=== PATIENT | male | born 1945 | race Caucasian/White ===

== ENCOUNTER → 2020-06-17 | Outpatient (CLI) | payer BC ==
[2015-02-04 10:35] VITALS: BP 160/81
[~2020-06-17] MED LIST: ALBU2.5V8 IH; ASPI325T11 PO; ATOR20TA PO; FLUT1DIS IH; FLUT1DIS3 IH; HYDR-2761 PO; LISI-338 PO; METO25TA4 PO; TICA90TA PO
--- NOTE | 2020-06-18 12:26 | CARD ---
MR#: [id number] Date of Study: 06/17/2020 Ordering Physician: MARIA DE JESUS BRINK, Referring Physician: MARIA DE JESUS BRINK, Tech: Preethi Ye [facility] APPROVED REPORT EXAM: Two-dimensional and M-mode echocardiogram with Doppler and color Doppler. Other Information Quality : Good INDICATION Cardiac Disease: CAD 2D DIMENSIONS RVDd2.7 (2.9-3.5cm)Left Atrium(2D)3.4 (1.6-4.0cm) IVSd1.3 (0.7-1.1cm)Aortic Root(2D)3.0 (2.0-3.7cm) LVDd4.8 (3.9-5.9cm)LVOT Diameter2.3 (1.8-2.4cm) PWd1.2 (0.7-1.1cm)LVDs3.1 (2.5-4.0cm) FS (%) 35.5 %SV68.2 ml Aortic Valve AoV Peak Humza.137.1cm/sAoV VTI23.1cm AO Peak GR.7.5mmHgLVOT Peak Humza.79.3cm/s AO Mean GR.4mmHgAVA (VMAX)2.32cm2 ERAN (VTI)3.10cm2 Mitral Valve MV E Quyyxgbi51.8cm/sMV DECEL [id number] MV A Twhhohtf584.1cm/sE/A Ratio0.4 Pulmonary Vein S1 Piffyjee65.4cm/sD2 Flsyilwu80.6cm/s LEFT VENTRICLE The left ventricle is normal size. There is mild concentric left ventricular hypertrophy. The left ve ntricular systolic function is grossly normal. The Ejection Fraction is 50-55%. There is slight hypok inesis of the septal wall. Transmitral Doppler flow pattern is Grade I-abnormal relaxation pattern. RIGHT VENTRICLE The right ventricle is normal size. The right ventricular systolic function is normal. ATRIA The left atrium size is normal. The right atrium size is normal. AORTIC VALVE The aortic valve is moderately thickened but opens well. Doppler and Color Flow revealed mild aortic regurgitation. There is no significant aortic valvular stenosis. MITRAL VALVE The mitral valve is calcified but opens well. There is no evidence of mitral valve prolapse. There is no mitral valve stenosis. Doppler and Color-flow revealed trace mitral regurgitation. TRICUSPID VALVE The tricuspid valve is normal in structure and function. Doppler and Color Flow revealed no tricuspid valve regurgitation noted. There is no tricuspid valve stenosis. PULMONIC VALVE The pulmonic valve is not well visualized. Doppler and Color Flow revealed trace pulmonic valvular re gurgitation. There is no pulmonic valvular stenosis. GREAT VESSELS The aortic root is normal in size. The ascending aorta is normal in size. The IVC is normal in size a nd collapses >50% with inspiration. PERICARDIAL EFFUSION There is no evidence of significant pericardial effusion. Critical Notification Critical Value: No <Conclusion> The left ventricle is normal size. The left ventricular systolic function is grossly normal. The Ejection Fraction is 50-55%. There is slight hypokinesis of the septal wall. There is mild concentric left ventricular hypertrophy. Doppler and Color Flow revealed mild aortic regurgitation. There is no significant aortic valvular stenosis. Doppler and Color-flow revealed trace mitral regurgitation. Doppler and Color Flow revealed no tricuspid valve regurgitation noted. Signed by : Eduardo Jacob MD Electronically Approved : 06/18/2020 12:26:27
== END | disposition home or self-care (01) ==
LOC: ECHO 14:31
PROVIDERS: ATTEND Internal Medicine Cardiovascular Disease
DX: I08.0 Rheumatic disorders of both mitral and aortic valves (principal); I25.10 Atherosclerotic heart disease of native coronary artery without angina pectoris
CPT/HCPCS: 93306